=== PATIENT | male | born 1940 | race Caucasian/White ===

== ENCOUNTER → 2018-12-07 | Outpatient (CLI) | payer MEDICARE ==
[~2018-12-07] MED LIST: HOLD METFORMIN - RECEIVED CONTRAST 20 ML VIAL IV SCH; IOHEXOL 350 MG/ML 100 ML (OMNIPAQUE 350) VIAL IV ONE; NS 100 ML (IVPB) BAG IV ONE
--- NOTE | 2018-12-07 11:01 | Diagnostic Imaging Report ---
EXAM: CT NECK/CHEST W INDICATION: Tracheal stricture. COMPARISON: None. FINDINGS: Neck: No mass or fluid collection in the neck. No cervical lymphadenopathy. The thyroid and major salivary glands are unremarkable. The floor of the mouth, tongue base and epiglottis are negative. No prevertebral fluid. The pharyngeal and laryngeal soft tissues are symmetric bilaterally with no foci of suspicious enhancement. The cervical carotid and vertebral arteries are grossly patent on this nondedicated exam. No acute findings in the cervical spine. Moderate spondylotic changes. Chest: Diffuse fibrotic changes throughout the right lung including some honeycombing. Small right pleural effusion. There is also calcified pleural plaque along the medial right lower lobe. Mass-like consolidation about the hilum measuring 1.9 x 1.7 cm. There is also mass-like consolidation along the major fissure measuring 2.6 x 1.9 cm. The left lung is clear. Diffuse calcification of the mediastinal lymph nodes. Normal heart size. No pericardial effusion. Prominent-caliber left pulmonary arteries. The right pulmonary artery appears stenotic and is not opacified. Calcified granulomas in the liver and spleen. Nonspecific but simple-appearing cyst in the partially visualized kidneys. No acute osseous findings. IMPRESSION: 1. 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 2. There are diffuse fibrotic changes throughout the right lung with regions of mass-like consolidation which are indeterminate. Although these may be due to scarring, neoplastic process is not excluded. Recommend comparison with prior outside imaging to document stability. Alternatively, short-term followup imaging versus nuclear medicine FDG PET/CT is recommended. 3. No acute CT findings in the neck. 4. The trachea demonstrates no regions of focal stenosis. Dictated by: Dictated on workstation # [id number]
== END ==
LOC: RAD FS 09:03
PROVIDERS: ATTEND Family Medicine
DX: J84.10 Pulmonary fibrosis, unspecified (principal); I89.8 Other specified noninfective disorders of lymphatic vessels and lymph nodes; I28.8 Other diseases of pulmonary vessels; J39.8 Other specified diseases of upper respiratory tract
CPT/HCPCS: 70491; 71260

== ENCOUNTER 2019-02-24 18:27 | Emergency (ER) | payer MEDICARE ==
[~2019-02-24] VITALS: Ht 177.8 cm; Wt 88.5 kg
--- NOTE | 2019-02-24 18:55 | ED Chest Pain ---
General Stated Complaint: CHEST PAIN, SOB Source: patient Exam Limitations: no limitations History of Present Illness Date Seen by Provider: Feb 24, 2019 Time Seen by Provider: 18:40 Initial Comments The patient is a very pleasant 78-year-old male who presents for evaluation of substernal chest pain which began about an hour ago and lasted about 45 minutes. Upon arrival he states he is feeling much better and that the pain has essentially gone away. He says it was a sharp pain radiating from his chest to his jaw/neck. As he has had similar pains in the past which have been relieved by Tums and antacid medications. He denies diaphoresis, shortness of breath, palpitations, abdominal pain, nausea, or syncope. He reports some mild light headedness during the painful episode. He had a stress test a few years ago which was normal per the patient. He also reports that he had a recent pneumonia but believes that he is completely recovered from is no longer on antibiotics. He reports a history of COPD and states that he has chronic issues with his right lung which she states does not function very well. He is alert and oriented 4, calm, and appears to be in no distress. Timing/Duration: 1 hour Severity/Quality: moderate Location: substernal Radiation: jaw, shoulders Activities at Onset: none Prior CP/Workup: stress test ASA po ARTIST COLOR SEPARATION: No NTG SL ARTIST COLOR SEPARATION: No Associated Symptoms: dizziness (lightheadedness) Allergies and Home Medications Allergies Coded Allergies: adhesive tape (Verified Allergy, Unknown, rash, 02/24/19) Patient Home Medication List Home Medication List Reviewed: Yes Review of Systems Review of Systems Constitutional: no symptoms reported EENTM: No Symptoms Reported Respiratory: No Symptoms Reported Cardiovascular: Chest Pain Gastrointestinal: No Symptoms Reported Genitourinary: No Symptoms Reported Musculoskeletal: no symptoms reported Skin: no symptoms reported Psychiatric/Neurological: No Symptoms Reported Endocrine: No Symptoms Reported Hematologic/Lymphatic: No Symptoms Reported All Other Systems Reviewed Negative Unless Noted: Yes Past Afivvvx-Yraewu-Lruncl Hx Past Med/Social Hx: Reviewed Nursing Past Med/Soc Hx Patient Social History Recent Foreign Travel: No Contact w/Someone Who Travel: No Physical Exam Vital Signs Vital Signs - First Documented 02/24/19 18:33 Temp 99.9 Pulse 111 Resp 18 B/P (MAP) 137/71 (93) Pulse Ox 97 Capillary Refill : Height, Weight, BMI Height: '" Weight: lbs. oz. kg; BMI Method: General Appearance: No Apparent Distress, WD/WN HEENT: PERRL/EOMI, TMs Normal Neck: Full Range of Motion, Non Tender, Supple Respiratory: Chest Non Tender, Lungs Clear, Normal Breath Sounds, No Accessory Muscle Use, No Respiratory Distress Cardiovascular: No JVD, Normal Peripheral Pulses, Tachycardia, Other (1+ edema bilateral ankles) Gastrointestinal: No Pulsatile Mass, Non Tender, Soft Extremity: Normal Capillary Refill, Non Tender Neurologic/Psychiatric: Alert, Oriented x3, No Motor/Sensory Deficits, Normal Mood/Affect, global compensation analyst II-XII Norm as Tested Skin: Normal Color, Warm/Dry Focused Exam Lactate Level 02/24/19 18:50: Lactic Acid Level 1.34 Lactic Acid Level Laboratory Tests Test 02/24/19 18:50 Lactic Acid Level 1.34 MMOL/L (0.50-2.00) Progress/Results/Core Measures Results/Orders Lab Results Laboratory Tests Test 02/24/19 18:31 02/24/19 18:50 02/24/19 21:15 Range/Units Prothrombin Time 13.7 12.2-14.7 SEC INR Comment 1.0 0.8-1.4 Activated Partial Thromboplast Time 29 24-35 SEC White Blood Count 11.8 H 4.3-11.0 10^3/uL Red Blood Count 4.41 4.35-5.85 10^6/uL Hemoglobin 13.8 13.3-17.7 G/DL Hematocrit 43 40-54 % Mean Corpuscular Volume 97 80-99 FL Mean Corpuscular Hemoglobin 31 25-34 PG Mean Corpuscular Hemoglobin Concent 32 32-36 G/DL Red Cell Distribution Width 13.4 10.0-14.5 % Platelet Count 178 130-400 10^3/uL Mean Platelet Volume 10.3 7.4-10.4 FL Neutrophils (%) (Auto) 82 H 42-75 % Lymphocytes (%) (Auto) 6 L 12-44 % Monocytes (%) (Auto) 8 0-12 % Eosinophils (%) (Auto) 3 0-10 % Basophils (%) (Auto) 0 0-10 % Neutrophils # (Auto) 9.7 H 1.8-7.8 X 10^3 Lymphocytes # (Auto) 0.8 L 1.0-4.0 X 10^3 Monocytes # (Auto) 0.9 0.0-1.0 X 10^3 Eosinophils # (Auto) 0.4 H 0.0-0.3 10^3/uL Basophils # (Auto) 0.0 0.0-0.1 10^3/uL Neutrophils % (Manual) 78 % Lymphocytes % (Manual) 9 % Monocytes % (Manual) 4 % Eosinophils % (Manual) 6 % Basophils % (Manual) 1 % Band Neutrophils 2 % Sodium Level 141 135-145 MMOL/L Potassium Level 4.0 3.6-5.0 MMOL/L Chloride Level 101 98-107 MMOL/L Carbon Dioxide Level 29 21-32 MMOL/L Anion Gap 11 5-14 MMOL/L Blood Urea Nitrogen 23 H 7-18 MG/DL Creatinine 1.24 0.60-1.30 MG/DL Estimat Glomerular Filtration Rate 57 BUN/Creatinine Ratio 19 Glucose Level 137 H 70-105 MG/DL Lactic Acid Level 1.34 0.50-2.00 MMOL/L Calcium Level 9.1 8.5-10.1 MG/DL Corrected Calcium 9.2 8.5-10.1 MG/DL Magnesium Level 2.1 1.6-2.4 MG/DL Total Bilirubin 0.3 0.1-1.0 MG/DL Aspartate Amino Transf (AST/SGOT) 18 5-34 U/L Alanine Aminotransferase (ALT/SGPT) 23 0-55 U/L Alkaline Phosphatase 104 40-136 U/L Troponin I < 0.30 < 0.30 <0.30 NG/ML Pro-B-Type Natriuretic Peptide 28.7 <75.0 PG/ML Total Protein 7.0 6.4-8.2 GM/DL Albumin 3.9 3.2-4.5 GM/DL My Orders Orders - TUNDE HARRY DO Cbc With Automated Diff (02/24/19 18:31) Magnesium (02/24/19 18:31) Chest 1 View Ap/Pa Only (02/24/19 18:31) Ekg Tracing (02/24/19 18:31) Comprehensive Metabolic Panel (02/24/19 18:31) Protime With Inr (02/24/19 18:31) Partial Thromboplastin Time (02/24/19 18:31) O2 (02/24/19 18:31) Monitor-Rhythm Ecg Trace Only (02/24/19 18:31) Ed Iv/Invasive Line Start (02/24/19 18:31) Creatine Kinase Mb (02/24/19 18:31) Troponin I (02/24/19 18:31) Probnp Fs (02/24/19 18:31) Lactic Acid Analyzer (02/24/19 18:55) Blood Culture (02/24/19 18:55) Aspirin Chewable Tablet (Baby Aspirin Ch (02/24/19 19:00) Lidocaine 2% Viscous 15 Ml (Xylocaine Vi (02/24/19 19:00) Antacid Suspension (Mylanta Suspension (02/24/19 19:00) Manual Differential (02/24/19 18:50) Blood Culture (02/24/19 19:37) Troponin I (02/24/19 21:15) Medications Given in ED Current Medications Medications Dose Ordered Sig/Omid Route Start Time Stop Time Status Last Admin Dose Admin Al Hydrox/Mg Hydrox/Simethicone 30 ml ONCE ONCE PO 02/24/19 19:00 02/24/19 19:01 DC 02/24/19 19:48 30 ML Aspirin 324 mg ONCE ONCE PO 02/24/19 19:00 02/24/19 19:01 DC 02/24/19 19:48 324 MG Lidocaine HCl 15 ml ONCE ONCE PO 02/24/19 19:00 02/24/19 19:01 DC 02/24/19 19:48 15 ML Vital Signs/I&O 02/24/19 18:33 Temp 99.9 Pulse 111 Resp 18 B/P (MAP) 137/71 (93) Pulse Ox 97 Progress Progress Note : Progress Note @2155 - Patient and dictated on lab and imaging results. CXR is unremarkable other than showing chronic lung findings. The patient is completely pain-free and states that he would like to go home at this time. He believes that the GI cocktail helped his symptoms significantly. Advised the patient to follow up with his PCP in the next 1-2 days and to return to the emergency Department immediately for new or worsening symptoms. He expresses verbal understanding and agreement with the plan. EKG : Comment @1833 - Sinus tachycardia, rate of 110, normal axis, no acute ischemic findings noted, no STEMI, reviewed and interpreted by myself Departure Impression Primary Impression: Chest pain Additional Impression: GERD (gastroesophageal reflux disease) Disposition: HOME, SELF-CARE Condition: Stable Departure-Patient Inst. Decision time for Depature: 22:01 Referrals: AVA HODGES MD (PCP/Family) Primary Care Physician Patient Instructions: Acid Reflux (Gastroesophageal Reflux Disease), Adult (DC), Chest Pain (DC) Add. Discharge Instructions: As discussed follow-up with your doctor in the next 1-2 days. Return to the ER immediately for new or worsening symptoms. Take the prescribed medication as directed. Scripts Pantoprazole Sodium (Protonix) 40 Mg Chito.dr 40 MG PO DAILY for 20 Days, #20 TAB Prov: TUNDE HARRY DO 02/24/19 TUNDE HARRY DO Feb 24, 2019 18:55
--- NOTE | 2019-02-24 19:11 | Diagnostic Imaging Report ---
INDICATION: Chest pain, shortness of breath. COMPARISON: No priors. FINDINGS: The heart is enlarged. There are interstitial densities in the right lung with some volume loss. This may be chronic; however, I have no prior chest radiographs for comparison. When it is correlated with a CT of 12/07/2018, it showed no obvious change. Calcified mediastinal and hilar granulomatous residua chronic. No pleural fluid. IMPRESSION: Chronic volume loss and interstitial changes in the right lung with chronic calcified thoracic lymph nodes. No acute finding or apparent change when correlated with previous CT. Dictated by: Dictated on workstation # [id number]
[2019-02-24 19:15] LABS: BASOPHILS % (AUTO) 0 % (0-10); EOSINOPHILS # (AUTO) 0.4 10^3/uL (0.0-0.3); EOSINOPHILS % (AUTO) 3 % (0-10); HEMATOCRIT 43 % (40-54); HEMOGLOBIN 13.8 G/DL (13.3-17.7); LYMPHOCYTES # (AUTO) 0.8 X 10^3 (1.0-4.0); LYMPHOCYTES % (AUTO) 6 % (12-44); MEAN CORPUSCULAR HEMOGLOBIN 31 PG (25-34); MEAN CORPUSCULAR HGB CONC 32 G/DL (32-36); MEAN CORPUSCULAR VOLUME 97 FL (80-99); MEAN PLATELET VOLUME 10.3 FL (7.4-10.4); MONOCYTES # (AUTO) 0.9 X 10^3 (0.0-1.0); MONOCYTES % (AUTO) 8 % (0-12); NEUTROPHILS # (AUTO) 9.7 X 10^3 (1.8-7.8); NEUTROPHILS % (AUTO) 82 % (42-75); PLATELET COUNT 178 10^3/uL (130-400); RED CELL DISTRIBUTION WIDTH 13.4 % (10.0-14.5); WHITE BLOOD COUNT 11.8 10^3/uL (4.3-11.0)
[2019-02-24 19:30] LABS: CALCIUM 9.1 MG/DL (8.5-10.1); CREATININE SERUM 1.24 MG/DL (0.60-1.30)
[2019-02-24 19:31] LABS: BILIRUBIN,TOTAL 0.3 MG/DL (0.1-1.0)
[2019-02-24 19:32] LABS: ALBUMIN 3.9 GM/DL (3.2-4.5)
[2019-02-24 19:35] LABS: PROTHROMBIN TIME PATIENT 13.7 SEC (12.2-14.7)
[2019-02-24] MEDS: ANTACID SUSP 30 ML UDC (MYLANTA) PO ONE (19:48)
[2019-02-24] MEDS: ASPIRIN 81 MG CHEW (CHILDREN'S ASA) PO ONE (19:48)
[2019-02-24] MEDS: LIDOCAINE 2% VISCOUS 15 ML UDC PO ONE (19:48)
[2019-02-24 19:56] LABS: MAGNESIUM 2.1 MG/DL (1.6-2.4)
[2019-02-24 20:00] LABS: BAND NEUTROPHILS 2 %; BASOPHILS % (MANUAL) 1 %; EOSINOPHILS % (MANUAL) 6 %; LYMPHOCYTES % (MANUAL) 9 %; MONOCYTES % (MANUAL) 4 %; NEUTROPHILS % (MANUAL) 78 %
[2019-02-24] MEDS ORDERED: PANT40SU PO (22:03)
[2019-02-24 22:32] VITALS: BP 121/76
[2019-02-25 09:32] LABS: CREATINE KINASE MB 5.9 NG/ML (<6.6)
== END 2019-02-24 22:31 | disposition home or self-care (01) ==
LOC: EDUNIT# 18:27 → ER FS 18:28
DX: R07.9 Chest pain, unspecified (principal); K21.9 Gastro-esophageal reflux disease without esophagitis; J44.9 Chronic obstructive pulmonary disease, unspecified; Z88.8 Allergy status to other drugs, medicaments and biological substances
CPT/HCPCS: 36415; 71045; 80053; 82553; 83605; 83735; 83880; 84484; 85007; 85027; 85610; 85730; 87040; 93005; 93041

== ENCOUNTER 2021-09-13 12:09 | Emergency (ER) | payer MEDICARE, OTHER ==
[~2021-09-13] VITALS: Ht 175.2 cm; Wt 80.9 kg
[~2021-09-13 12:09] MED LIST changes: -HOLD METFORMIN - RECEIVED CONTRAST 20 ML VIAL IV SCH; -IOHEXOL 350 MG/ML 100 ML (OMNIPAQUE 350) VIAL IV ONE; -NS 100 ML (IVPB) BAG IV ONE; +PANT40SU PO
[2021-09-13] MEDS ORDERED: KETOROLAC 30 MG/ML VIAL IM ONE (12:30)
--- NOTE | 2021-09-13 12:41 | ED Upper Extremity ---
General Chief Complaint: Upper Extremity Stated Complaint: LT SHOULDER INJ Nursing Triage Note: Patient presents to the ED with c/o left shoulder pain and impaired range of motion. States he was changing a saw blade and applying pressure when the tool slipped causing his left arm go back forcefully and he felt a pop. Since then reports severe pain in left shoulder with movement of left arm. Source: patient History of Present Illness Date Seen by Provider: Sep 13, 2021 Time Seen by Provider: 12:00 Initial Comments Patient is on 81-year-old right-handed male presents with left upper thoracic trapezius muscle pain. Patient was wrenching in his shop when he felt a sudden sharp pain and popping sensation over upper left posterior shoulder. Pain is continuous, rated moderate to severe and worse with palpation and active shoulder rotation. He has tenderness to palpation over his trapezius. The pain does radiate into his shoulder but he does not have pain on passive range of motion shoulder or tenderness in his shoulder joint. There is no midline pain or tenderness. No loss of sensation or motor function. Injury occurred just prior to ED arrival. No medications or therapies given prior to ED arrival Onset: just prior to arrival Severity: severe Pain/Injury Location: left shoulder Method of Injury: other Modifying Factors: Improves With Immobilization, Improves With Movement, Improves With Other Allergies and Home Medications Allergies Coded Allergies: adhesive tape (Verified Allergy, Unknown, rash, 02/24/19) Patient Home Medication List Home Medication List Reviewed: Yes Pantoprazole Sodium (Protonix) 40 Mg , 40 MG PO DAILY Prescribed by: TUNDE HARRY on 02/24/19 5437 Review of Systems Constitutional: see HPI EENTM: see HPI Respiratory: see HPI Cardiovascular: see HPI Gastrointestinal: see HPI Genitourinary: see HPI Musculoskeletal: see HPI Past Pnlfkfx-Ahfsze-Iuwxwd Hx Patient Social History Tobacco Use?: No Use of E-Cig and/or Vaping dev: No Substance use?: No Alcohol Use?: No Pt feels they are or have been: No Immunizations Up To Date Influenza Vaccine Up-to-Date: Yes; Up-to-Date First/Initial COVID19 Vaccinat: Yes Second COVID19 Vaccination Abiodun: yes 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 Surgeries: Yes Appendectomy Respiratory: Yes (lung is scarred; "one lung is big and pushing on heart" ) Pneumonia Cardiac: No Neurological: No Genitourinary: No Gastrointestinal: No Musculoskeletal: No Endocrine: No HEENT: No Cancer: No Psychosocial: No Integumentary: No Physical Exam Vital Signs Vital Signs - First Documented 09/13/21 12:18 Temp 36.2 Pulse 101 Resp 18 B/P (MAP) 152/78 (102) Pulse Ox 100 O2 Delivery Room Air Capillary Refill : Less Than 3 Seconds Height, Weight, BMI Height: 5'10.00" Weight: 195lbs. oz. 88.832896ny; 26.00 BMI Method:Stated General Appearance: moderate distress Neck: non-tender, full range of motion, supple Back: muscle spasm (Left trapezius muscle pain/tenderness reproducing patient's complaint.) Shoulder: normal inspection, non-tender, no evidence of injury, normal ROM Progress/Results/Core Measures Results/Orders My Orders Orders - LAILA GODFREY DO Ketorolac Injection (Toradol Injection) (09/13/21 12:30) Ice: Apply To Affected Area (09/13/21 12:29) Vital Signs/I&O 09/13/21 12:18 Temp 36.2 Pulse 101 Resp 18 B/P (MAP) 152/78 (102) Pulse Ox 100 O2 Delivery Room Air Blood Pressure Mean: 102 Departure Communication (Admissions) Reproducible shoulder sprain. NSAIDs, ice provided. Recommendations are supportive care watchful waiting and PCP follow-up. Impression Primary Impression: Shoulder pain, left Disposition: 01 HOME, SELF-CARE Condition: Stable Departure-Patient Inst. Decision time for Depature: 12:40 Referrals: AVA HODGES MD (PCP) Primary Care Physician Patient Instructions: Shoulder Pain ED Add. Discharge Instructions: Your evaluated in the emergency department for left shoulder back pain. Your symptoms are consistent with trapezius muscle sprain. Please take 2 Aleve twice daily, apply ice to the affected area for 20 to 30 minutes every 2-3 hours for the first 2 days. Afterwards you may use moist heat for additional relief. Take Flexeril as directed. Limit left arm use and follow-up with your PCP in 1 week for reevaluation. Return to the ED if new or worsening symptoms. All discharge instructions reviewed with patient and/or family. Voiced understanding. Scripts Cyclobenzaprine HCl (Cyclobenzaprine HCl) 10 Mg Tablet 10 MG PO TID, #30 TAB Prov: LAILA GODFREY DO 09/13/21 LAILA GODFREY DO Sep 13, 2021 12:41
[2021-09-13] MEDS ORDERED: CYCL10TA25 PO (12:42)
[2021-09-13 12:53] VITALS: BP 152/78
== END 2021-09-13 12:54 | disposition home or self-care (01) ==
LOC: EDUNIT# 12:09 → ER FS 12:10
DX: S43.402A Unspecified sprain of left shoulder joint, initial encounter (principal); X50.1XXA Overexertion from prolonged static or awkward postures, initial encounter; Y92.59 Other trade areas as the place of occurrence of the external cause; Y92.513 Shop (commercial) as the place of occurrence of the external cause
CPT/HCPCS: 99284; A4565

== ENCOUNTER 2022-07-30 12:02 | Emergency (ER) | payer MEDICARE, OTHER ==
[~2022-07-30] VITALS: Ht 175 cm; Wt 82.0 kg
[~2022-07-30 12:02] MED LIST changes: +CYCL10TA25 PO
[2022-07-30 12:14] LABS: BASOPHILS # (AUTO) 0.1 10^3/uL (0.0-0.1); BASOPHILS % (AUTO) 1 % (0-10); EOSINOPHILS # (AUTO) 0.2 10^3/uL (0.0-0.3); EOSINOPHILS % (AUTO) 2 % (0-10); HEMATOCRIT 43 % (40-54); HEMOGLOBIN 14.4 g/dL (13.3-17.7); LYMPHOCYTES # (AUTO) 0.8 10^3/uL (1.0-4.0); LYMPHOCYTES % (AUTO) 8 % (12-44); MEAN CORPUSCULAR HEMOGLOBIN 32 pg (25-34); MEAN CORPUSCULAR HGB CONC 33 g/dL (32-36); MEAN CORPUSCULAR VOLUME 96 fL (80-99); MEAN PLATELET VOLUME 9.9 fL (9.0-12.2); MONOCYTES # (AUTO) 0.9 10^3/uL (0.0-1.0); MONOCYTES % (AUTO) 9 % (0-12); NEUTROPHILS # (AUTO) 7.9 10^3/uL (1.8-7.8); NEUTROPHILS % (AUTO) 80 % (42-75); PLATELET COUNT 198 10^3/uL (130-400); WHITE BLOOD COUNT 9.8 10^3/uL (4.3-11.0)
[2022-07-30] MEDS ORDERED: ASPIRIN 81 MG CHEW (CHILDREN'S ASA) PO ONE (12:15)
[2022-07-30] MEDS ORDERED: methylPREDNISolone 125 MG (Solu-MEDROL) VIAL IVP STA (12:28)
--- NOTE | 2022-07-30 12:28 | ED Chest Pain ---
General Chief Complaint: Chest Pain Stated Complaint: CHEST PAIN Source: patient History of Present Illness Date Seen by Provider: Jul 30, 2022 Time Seen by Provider: 12:09 Initial Comments 82-year-old male presenting with concerns for numbness and aching and has left arm that has been present since he woke up around 7 AM. He initially was thinking that he had slept on the arm wrong to cause him to have the aching in tingling sensation. However since it was persisting and not improving he decided to come to the emergency department to be evaluated. He has no known history of cardiac disease. He states that he had thought he was having a heart attack a few years ago and got transferred to [place] where they evaluated him and advised him that was a medication he was taking that caused his symptoms and not a actual heart attack. He denies any new medications currently. He has recently had an ear infection and took steroids as well as antibiotics to help treat that. He still has some fluid in his ears with difficulty hearing but states that it is improving. He denies having numbness and tingling in his arm like this previously. He denies any fall or injury. He had tried some tylenol at home for the arm sensation but it was not changing after he took the medicine. He denies shortness of breath, nausea, vomiting, abdominal pain, neck pain, headache, fever, chills. Timing/Duration: 4-6 hours, constant Severity/Quality: moderate, aching (With numbness and tingling from his left shoulder down to his fingers) Radiation: arms (From left shoulder down to his left fingers) Activities at Onset: sleep (Present when he woke up around 7 AM) Prior CP/Workup: non-cardiac ASA po MUSIC CATALOGUER: No NTG SL MUSIC CATALOGUER: No Associated Symptoms: No abdominal pain, No back pain, No diaphoresis, No dizziness, No edema, No fatigue, No fever/chills, No headache, No heartburn, No nausea/vomiting, No rash, No shortness of breath, No swelling/lump in chest, No syncope, No weakness Allergies and Home Medications Allergies Coded Allergies: adhesive tape (Verified Allergy, Unknown, rash, 02/24/19) Patient Home Medication List Home Medication List Reviewed: Yes Cyclobenzaprine HCl (Cyclobenzaprine HCl) 10 Mg Tablet, 10 MG PO TID Prescribed by: LAILA GODFREY on 09/13/21 1242 Pantoprazole Sodium (Protonix) 40 Mg Granpkt.dr 40 MG PO DAILY Prescribed by: TUNDE HARRY on 02/24/19 3768 Review of Systems Review of Systems Constitutional: No chills, No dizziness, No fever EENTM: See HPI Respiratory: No Symptoms Reported Cardiovascular: Denies Chest Pain Gastrointestinal: No Symptoms Reported Genitourinary: No Symptoms Reported Musculoskeletal: see HPI Skin: No rash Psychiatric/Neurological: See HPI Hematologic/Lymphatic: Denies Blood Clots Past Shcrbtn-Nuojgo-Bcqxox Hx Patient Social History Tobacco Use?: No Use of E-Cig and/or Vaping dev: No Substance use?: No Alcohol Use?: No Immunizations Up To Date First/Initial COVID19 Vaccinat: Yes Second COVID19 Vaccination Abiodun: yes Seasonal Allergies Seasonal Allergies: No Past Medical History Surgery/Hospitalization HX: High cholesterol; hypothyroidism; BPH; Depression; Kidney stones; Appendectomy. Surgeries: Yes Appendectomy Respiratory: Yes (lung is scarred; "one lung is big and pushing on heart" ) Pneumonia Cardiac: No Neurological: No Genitourinary: No Gastrointestinal: No Musculoskeletal: No Endocrine: No HEENT: No Cancer: No Psychosocial: No Integumentary: No Physical Exam Vital Signs Vital Signs - First Documented 07/30/22 12:05 Temp 36.6 Pulse 101 Resp 16 B/P (MAP) 153/82 (105) Pulse Ox 98 O2 Delivery Room Air Capillary Refill : Height, Weight, BMI Height: 5'10.00" Weight: 195lbs. oz. 88.235488rz; 26.00 BMI Method:Stated General Appearance: No Apparent Distress, WD/WN HEENT: PERRL/EOMI, Pharynx Normal Neck: Full Range of Motion, Normal Inspection, Non Tender, Supple Respiratory: Chest Non Tender, Lungs Clear, No Accessory Muscle Use, No Respiratory Distress, Decreased Breath Sounds Cardiovascular: Regular Rate, Rhythm, Normal Peripheral Pulses Gastrointestinal: Normal Bowel Sounds, No Pulsatile Mass, Non Tender, Soft Rectal: Deferred Extremity: Normal Capillary Refill, Normal Inspection, Normal Range of Motion, No Calf Tenderness, No Pedal Edema Neurologic/Psychiatric: Alert, Oriented x3, No Motor/Sensory Deficits (Reports tingling and aching sensation in his left arm from his shoulder down to his fingers), stem teacher II-XII Norm as Tested Skin: Normal Color, Warm/Dry Progress/Results/Core Measures Results/Orders Lab Results Laboratory Tests Test 07/30/22 12:05 Range/Units White Blood Count 9.8 4.3-11.0 10^3/uL Red Blood Count 4.51 4.30-5.52 10^6/uL Hemoglobin 14.4 13.3-17.7 g/dL Hematocrit 43 40-54 % Mean Corpuscular Volume 96 80-99 fL Mean Corpuscular Hemoglobin 32 25-34 pg Mean Corpuscular Hemoglobin Concent 33 32-36 g/dL Red Cell Distribution Width 13.1 10.0-14.5 % Platelet Count 198 130-400 10^3/uL Mean Platelet Volume 9.9 9.0-12.2 fL Immature Granulocyte % (Auto) 1 % Neutrophils (%) (Auto) 80 H 42-75 % Lymphocytes (%) (Auto) 8 L 12-44 % Monocytes (%) (Auto) 9 0-12 % Eosinophils (%) (Auto) 2 0-10 % Basophils (%) (Auto) 1 0-10 % Neutrophils # (Auto) 7.9 H 1.8-7.8 10^3/uL Lymphocytes # (Auto) 0.8 L 1.0-4.0 10^3/uL Monocytes # (Auto) 0.9 0.0-1.0 10^3/uL Eosinophils # (Auto) 0.2 0.0-0.3 10^3/uL Basophils # (Auto) 0.1 0.0-0.1 10^3/uL Immature Granulocyte # (Auto) 0.1 0.0-0.1 10^3/uL Neutrophils % (Manual) 73 % Lymphocytes % (Manual) 8 % Monocytes % (Manual) 10 % Eosinophils % (Manual) 3 % Basophils % (Manual) 1 % Metamyelocytes % 1 % Myelocytes % 1 % Band Neutrophils 3 % Platelet Estimate NORMAL Blood Morphology Comment NORMAL Prothrombin Time 13.5 12.2-14.7 SEC INR Comment 1.0 0.8-1.4 Activated Partial Thromboplast Time 42 H 24-35 SEC Sodium Level 139 135-145 MMOL/L Potassium Level 4.6 3.6-5.0 MMOL/L Chloride Level 100 98-107 MMOL/L Carbon Dioxide Level 29 21-32 MMOL/L Anion Gap 10 5-14 MMOL/L Blood Urea Nitrogen 21 H 7-18 MG/DL Creatinine 1.35 H 0.60-1.30 MG/DL Estimat Glomerular Filtration Rate 53 BUN/Creatinine Ratio 16 Glucose Level 97 70-105 MG/DL Calcium Level 9.5 8.5-10.1 MG/DL Corrected Calcium 9.3 8.5-10.1 MG/DL Magnesium Level 2.4 1.6-2.4 MG/DL Total Bilirubin 0.4 0.1-1.0 MG/DL Aspartate Amino Transf (AST/SGOT) 19 5-34 U/L Alanine Aminotransferase (ALT/SGPT) 17 0-55 U/L Alkaline Phosphatase 165 H 40-136 U/L Troponin I < 0.30 <0.30 NG/ML Pro-B-Type Natriuretic Peptide 72.0 <450.0 PG/ML Total Protein 8.0 6.4-8.2 GM/DL Albumin 4.2 3.2-4.5 GM/DL Lipase 11 8-78 U/L My Orders Orders - BRITT BASS MD Cbc With Automated Diff (07/30/22 12:04) Magnesium (07/30/22 12:04) Ekg Tracing (07/30/22 12:04) Comprehensive Metabolic Panel (07/30/22 12:04) Protime With Inr (07/30/22 12:04) Partial Thromboplastin Time (07/30/22 12:04) O2 (07/30/22 12:04) Monitor-Rhythm Ecg Trace Only (07/30/22 12:04) Aspirin Chewable Tablet (Baby Aspirin Ch (07/30/22 12:15) Ed Iv/Invasive Line Start (07/30/22 12:04) Lipase (07/30/22 12:04) Troponin I Fs (07/30/22 12:04) Probnp Fs (07/30/22 12:04) Chest 1 View Ap/Pa Only (07/30/22 12:28) Methylprednisolone Sod Succ (Solu-Medrol (07/30/22 12:28) Manual Differential (07/30/22 12:05) Dexamethasone Injection (Decadron Inje (07/30/22 14:28) Medications Given in ED Current Medications Medications Dose Ordered Sig/Omid Route Start Time Stop Time Status Last Admin Dose Admin Aspirin 324 mg ONCE ONCE PO 07/30/22 12:15 07/30/22 12:16 DC 07/30/22 12:34 324 MG Vital Signs/I&O 07/30/22 07/30/22 12:05 14:02 Temp 36.6 36.6 Pulse 101 100 Resp 16 16 B/P (MAP) 153/82 (105) 151/77 Pulse Ox 98 98 O2 Delivery Room Air Room Air Progress Progress Note #1: Progress Note Potential diagnosis of myocardial infarction, acute coronary syndrome, unstable angina, congestive heart failure, peripheral neuropathy, cervical radiculopathy. Obtain IV access and ordered cardiac telemetry monitoring as well as an electrocardiogram. On my initial interpretation of his cardiac telemetry monitoring it shows a sinus rhythm with a heart rate of 96. Ordered labs to include complete blood count, comprehensive metabolic profile, cardiac enzymes with troponin and proBNP, coagulation factors. Order chest x-ray in addition to the electrocardiogram to evaluate the structure of his lungs and heart. He reports a history of having only 1 lung that functions and having effusion on the other side. He states this is a chronic issue and they could never give him an answer as to what caused it. He does use albuterol treatments 3-4 times a day which helps to clear mucus and prevent him from getting pneumonia with the pleural effusion and decreased lung movement. Order aspirin 324 mg to chew and swallow. This is in case he is having any acute coronary syndrome to explain his symptoms he would at least have aspirin on board to help prevent further platelet clotting or obstruction of coronary arteries. Progress Note #2: Progress Note I personally interpreted and reviewed his electrocardiogram which shows a sinus rhythm with a heart rate of [address] elevation. He had a 1 view chest x-ray which I personally interpreted and reviewed as Raised hemidiaphragm on right side with scarring vs atelectasis in right lung. No pleural effusion appreciated. Blood count shows his WBC is not elevated to indicate acute infection and he is not anemic with Hgb of 14.4. Comprehensive metabolic panel shows normal electrolytes and slight decrease in his renal function as he had a creatinine go from 1.24 in 2019 up to 1.35 today. He had a negative troponin of less than 0.3 to help rule out acute myocardial infarction since his symptoms of been present for over 5 hours by the time he arrived to the emergency department. I discussed with the patient that his electrocardiogram, chest x-ray, blood count, electrolytes, cardiac enzymes were all negative for acute myocardial infarction or acute arrhythmia. Patient stated he still had the aching and tingling in his left arm and I discussed obtaining a CT scan of his cervical spine to look for radiculopathy and compression of nerve roots or severe arthritic changes. Also advised him I could do an IV steroid to try and help with his symptoms in case this was a pinched nerve for irritated nerve. Patient declined to the CT scan but was willing to take a steroid dose. He stated he wa s on steroids within the last 2 weeks for his ear infection. Counseled that he should still follow-up with primary clinic for continued evaluation and concerns. However he is not showing any signs of testing that would indicate he required emergent transfer to hospital for admission. Encouraged to return or be seen again if having worsening symptoms.Ordered Dexamethasone 10 mg IV x 1 for his symptoms and discharge with return precautions. I did review the radiologist report on his 1 view chest x-ray. They had felt that he had increased fibrosis from 2019 with possible infiltrate on the right lung. With patient not having elevated white blood cell count or hypoxia will consider this more worsening of fibrosis in his lung. Initial ECG Impression Date: Jul 30, 2022 Initial ECG Impression Time: 12:14 Initial ECG Rate: 100 Initial ECG Rhythm: Normal Sinus Initial ECG Comparisson: Unchanged (02/24/2019) Comment Based on my personal interpretation and review his electrocardiogram shows sinus rhythm with a heart rate of 100 bpm. He has LA interval 168 ms. He has no acute ST elevation. His QT interval was 336 ms with a QTc interval 393 ms. Overall appears similar to tracing from February 24, 2019. Diagnostic Imaging Diagonstic Imaging: Xray Plain Films/CT/US/NM/MRI: chest Comments [facility] [place], [place] NAME: [facility] REC#: [id number] PT STATUS: DEP ER : 1940 PHYSICIAN: BRITT BASS MD ADMIT DATE: 07/30/22/ER FS Signed Date of Exam:07/30/22 CHEST 1 VIEW AP/PA ONLY HISTORY: Chest pain COMPARISON: 02/24/2019 TECHNIQUE: Frontal view of the chest. FINDINGS: Left lung volume is large and there is significant elevation of the right hemidiaphragm. There are heterogeneous opacities throughout the right lung which appear to be chronic but are increased since 2019. There are increased linear opacities in the left lung. There is no left pleural effusion or pneumothorax. The cardiac silhouette is stable in size and mildly shifted to the right, likely from fibrosis. IMPRESSION: 1. Chronic heterogeneous opacities in the right lung, likely from fibrosis appear mildly increased since 2019. This may be due to progression of disease versus superimposed infiltrate. 2. Mildly increased interstitial opacities in the left lung, may be due to mild edema. Dictated by: Dictated on workstation # [id number] Dict: 07/30/22 1252 Trans: 07/30/22 1715 CV [id number] Interpreted by: RICK ZAMUDIO MD Electronically signed by: RICK ZAMUDIO MD 07/30/22 4520 Reviewed: Reviewed by Me (1400 I personally reviewed the Radiologist report on his 1 view Chest xray. [place] to be showing increased fibrosis from 2019 vs infiltrate.) Departure Impression Primary Impression: Paresthesia of left upper extremity Disposition: HOME, SELF-CARE Condition: Stable Departure-Patient Inst. Decision time for Depature: 14:29 Referrals: AVA HODGES MD (PCP/Family) Primary Care Physician Patient Instructions: Paresthesia (DC) Add. Discharge Instructions: Your heart tests were negative today for a heart attack or acute heart damage. This could be a pinched or irritated nerve causing the aching and tingling in your left arm. All discharge instructions reviewed with patient and/or family. Voiced understanding. BRITT BASS MD Jul 30, 2022 12:27
[2022-07-30 12:30] LABS: PROTHROMBIN TIME PATIENT 13.5 SEC (12.2-14.7)
[2022-07-30 12:34] LABS: POTASSIUM 4.6 MMOL/L (3.6-5.0)
[2022-07-30 12:35] LABS: ALBUMIN 4.2 GM/DL (3.2-4.5); BILIRUBIN,TOTAL 0.4 MG/DL (0.1-1.0); CALCIUM 9.5 MG/DL (8.5-10.1); CREATININE SERUM 1.35 MG/DL (0.60-1.30); MAGNESIUM 2.4 MG/DL (1.6-2.4)
[2022-07-30 12:42] LABS: BAND NEUTROPHILS 3 %; BASOPHILS % (MANUAL) 1 %; EOSINOPHILS % (MANUAL) 3 %; LYMPHOCYTES % (MANUAL) 8 %; METAMYELOCYTES % 1 %; MONOCYTES % (MANUAL) 10 %; MYELOCYTES % 1 %; NEUTROPHILS % (MANUAL) 73 %; PLATELET ESTIMATE NORMAL; RBC MORPH NORMAL
--- NOTE | 2022-07-30 12:55 | Diagnostic Imaging Report ---
HISTORY: Chest pain COMPARISON: 02/24/2019 TECHNIQUE: Frontal view of the chest. FINDINGS: Left lung volume is large and there is significant elevation of the right hemidiaphragm. There are heterogeneous opacities throughout the right lung which appear to be chronic but are increased since 2019. There are increased linear opacities in the left lung. There is no left pleural effusion or pneumothorax. The cardiac silhouette is stable in size and mildly shifted to the right, likely from fibrosis. IMPRESSION: 1. Chronic heterogeneous opacities in the right lung, likely from fibrosis appear mildly increased since 2019. This may be due to progression of disease versus superimposed infiltrate. 2. Mildly increased interstitial opacities in the left lung, may be due to mild edema. Dictated by: Dictated on workstation # [id number]
[2022-07-30 14:02] VITALS: BP 151/77
== END 2022-07-30 14:35 | disposition home or self-care (01) ==
LOC: EDUNIT# 12:02 → ER FS 12:03
DX: R20.2 Paresthesia of skin (principal)
CPT/HCPCS: 36415; 71045; 80053; 83690; 83735; 83880; 84484; 85007; 85027; 85610; 85730; 93005; 93041

== ENCOUNTER 2023-05-14 05:58 | Emergency (ER) | payer MEDICARE, OTHER ==
[~2023-05-14] VITALS: Ht 175.2 cm; Wt 84.0 kg
[2023-05-14] MEDS ORDERED: ONDANSETRON INJECTION 4 MG/2 ML (SDV) IVP STA (06:17)
[2023-05-14] MEDS ORDERED: NS (IVPB) 250 ML 250 ML IV STA (06:17)
[2023-05-14 06:25] LABS: BASOPHILS % (AUTO) 1 % (0-10); EOSINOPHILS # (AUTO) 0.3 10^3/uL (0.0-0.3); EOSINOPHILS % (AUTO) 5 % (0-10); HEMATOCRIT 38 % (40-54); HEMOGLOBIN 12.8 g/dL (13.3-17.7); LYMPHOCYTES # (AUTO) 0.8 10^3/uL (1.0-4.0); LYMPHOCYTES % (AUTO) 12 % (12-44); MEAN CORPUSCULAR HEMOGLOBIN 35 pg (25-34); MEAN CORPUSCULAR HGB CONC 34 g/dL (32-36); MEAN CORPUSCULAR VOLUME 105 fL (80-99); MEAN PLATELET VOLUME 9.5 fL (9.0-12.2); MONOCYTES # (AUTO) 0.4 10^3/uL (0.0-1.0); MONOCYTES % (AUTO) 7 % (0-12); NEUTROPHILS % (AUTO) 75 % (42-75); PLATELET COUNT 183 10^3/uL (130-400); WHITE BLOOD COUNT 6.6 10^3/uL (4.3-11.0)
--- NOTE | 2023-05-14 06:26 | ED Fall/Injury ---
General Chief Complaint: Laceration Stated Complaint: FALL| Source: patient (BRITT BASS MD) History of Present Illness Date Seen by Provider: May 14, 2023 Time Seen by Provider: 06:01 Initial Comments 82-year-old male presenting by private vehicle from home after he had fallen trying to get up out of bed to use the restroom. He states this happened to him on Thursday morning as well however he was able to lay back down in the dizziness that started when he tried to get up went away. He was fine throughout the rest of the day. Today he was not able to lay back down before the dizziness made him fall and he hit his head on the floor. He thinks he got knocked out for second. He now has some nausea and complaints of dizziness that comes and goes. He has not had any actual vomiting. He denies any numbness or weakness in his arms or legs. He has no change in his vision. He also has some pain to his left shoulder, scalp, head, cervical spine. He does have a history of hypothyroid, depression, high cholesterol, COPD, fluid retention. He believes his last tetanus booster was within the last 5 years. Location Injury Occurred: home Occurred: just prior to arrival Severity: moderate Injuries/Pain Location: head, neck, upper extremity (Left shoulder) Context: fainted (Got dizzy and fell and tried to get up out of bed to urinate) Loss of Consciousness: brief (seconds) Modifying Factors: Worse With Movement Associated Symptoms (Fall): No Abdominal Pain, No Chest Pain, No Confusion; Dizziness, Headache, Lightheadedness; No Muscle Spasms; Nausea/Vomiting, Neck Pain; No Ringing in Ears, No Seizures, No Shortness of Air, No Slurred Speech; Trouble Walking; No Vision Changes (BRITT BASS MD) Initial Comments Agree with H&P (VIJAYA JACK MD) Allergies and Home Medications Allergies Coded Allergies: adhesive tape (Verified Allergy, Unknown, rash, 02/24/19) Patient Home Medication List Home Medication List Reviewed: Yes (BRITT BASS MD) Cyclobenzaprine HCl (Cyclobenzaprine HCl) 10 Mg Tablet, 10 MG PO TID Prescribed by: LAILA GODFREY on 09/13/21 1242 Pantoprazole Sodium (Protonix) 40 Mg , 40 MG PO DAILY Prescribed by: TUNDE HARRY on 02/24/19 Review of Systems Review of Systems Constitutional: No chills, No diaphoresis; dizziness; No fever Eyes: Denies Blurred Vision, Denies Photophobia, Denies Tunnel Vision, Denies Vision Changes Ears, Nose, Mouth, Throat: denies ear pain, denies ear discharge, denies nose pain, denies nose discharge, denies epistaxis Respiratory: No cough, No hemoptysis Cardiovascular: No chest pain Gastrointestinal: No abdominal pain; nausea; No vomiting Genitourinary: No dysuria Musculoskeletal: see HPI Skin: see HPI (scalp laceration) Psychiatric/Neurological: Headache; Denies Numbness, Denies Paresthesia (BRITT BASS MD) Past Borxypy-Odecxh-Ovnhox Hx Patient Social History Tobacco Use?: No Use of E-Cig and/or Vaping dev: No Substance use?: No Alcohol Use?: No Pt feels they are or have been: No (BRITT BASS MD) Immunizations Up To Date Influenza Vaccine Up-to-Date: No; Not Current First/Initial COVID19 Vaccinat: Yes Second COVID19 Vaccination Abiodun: yes Third COVID19 Vaccination Date: Yes (BRITT BASS MD) Seasonal Allergies Seasonal Allergies: No (BRITT BASS MD) Past Medical History Surgery/Hospitalization HX: High cholesterol; hypothyroidism; BPH; Depression; Kidney stones; Appendectomy. Surgeries: Yes Appendectomy Respiratory: Yes (lung is scarred; "one lung is big and pushing on heart" ) Pneumonia Cardiac: No Neurological: No Genitourinary: No Gastrointestinal: No Musculoskeletal: No Endocrine: No HEENT: No Cancer: No Psychosocial: No Integumentary: No (BRITT BASS MD) Physical Exam Vital Signs Vital Signs - First Documented 05/14/23 06:00 Temp 36.6 Pulse 93 Resp 18 B/P (MAP) 140/72 (94) Pulse Ox 98 O2 Delivery Room Air (VIJAYA JACK MD) Vital Signs Capillary Refill : (BRITT BASS MD) Height, Weight, BMI Height: 5'10.00" Weight: 195lbs. oz. 88.755747lw; 26.00 BMI Method:Stated General Appearance: WD/WN, no apparent distress HEENT: PERRL/EOMI, TMs normal, pharynx normal; No photophobia; other (Negative palomo sign, negative raccoon sign, no CSF otorrhea, no CSF rhinorrhea, no hemotympanums. He does have a L-shaped laceration to the left occiput. This is approximately 2.2 cm. Bleeding is controlled) Neck: full range of motion, supple, tender lateral; No tender midline Cardiovascular: normal peripheral pulses, regular rate, rhythm Respiratory: chest non-tender, lungs clear, normal breath sounds, no respiratory distress, no accessory muscle use Gastrointestinal: normal bowel sounds, non tender, soft, no pulsatile mass Rectal: deferred Extremities: normal range of motion, non-tender, normal capillary refill Neurologic/Psychiatric: rabbler II-XII nml as tested, alert, oriented x 3 Skin: warm/dry, other (2.2 cm L-shaped laceration to the left occiput) (BRITT BASS MD) [place] Coma Score Best Eye Response: (4) Open Spontaneously Best Verbal Response: (5) Oriented Best Motor Response: (6) Obeys Commands [place] Total: 15 (BRITT BASS MD) Best Eye Response: (4) Open Spontaneously Best Verbal Response: (5) Oriented Best Motor Response: (6) Obeys Commands (VIJAYA JACK MD) Procedures/Interventions Wound Location: Scalp Wound Length (cm): 2.2 Wound's Depth, Shape: linear (L-shaped), contused tissue, sub Q Wound Explored: clean Irrigated w/ Saline (ccs): 150 Staple Repair: Stapler Skin Precise Progress After obtaining verbal consent from the patient the wound was cleaned with chlorhexidine scrub soap and sterile. Then using skin stapler a total of 5 simple interrupted marcela were placed to approximate the wound edges. Patient tolerated procedure well without any immediate complication. Ice pack was applied to help with pain and swelling. (BRITT BASS MD) Progress/Results/Core Measures Results/Orders Lab Results Laboratory Tests Test 05/14/23 06:15 Range/Units White Blood Count 6.6 4.3-11.0 10^3/uL Red Blood Count 3.62 L 4.30-5.52 10^6/uL Hemoglobin 12.8 L 13.3-17.7 g/dL Hematocrit 38 L 40-54 % Mean Corpuscular Volume 105 H 80-99 fL Mean Corpuscular Hemoglobin 35 H 25-34 pg Mean Corpuscular Hemoglobin Concent 34 32-36 g/dL Red Cell Distribution Width 14.8 H 10.0-14.5 % Platelet Count 183 130-400 10^3/uL Mean Platelet Volume 9.5 9.0-12.2 fL Immature Granulocyte % (Auto) 1 % Neutrophils (%) (Auto) 75 42-75 % Lymphocytes (%) (Auto) 12 12-44 % Monocytes (%) (Auto) 7 0-12 % Eosinophils (%) (Auto) 5 0-10 % Basophils (%) (Auto) 1 0-10 % Neutrophils # (Auto) 5.0 1.8-7.8 10^3/uL Lymphocytes # (Auto) 0.8 L 1.0-4.0 10^3/uL Monocytes # (Auto) 0.4 0.0-1.0 10^3/uL Eosinophils # (Auto) 0.3 0.0-0.3 10^3/uL Basophils # (Auto) 0.0 0.0-0.1 10^3/uL Immature Granulocyte # (Auto) 0.1 0.0-0.1 10^3/uL Prothrombin Time 14.0 12.2-14.7 SEC INR Comment 1.0 0.8-1.4 Activated Partial Thromboplast Time 37 H 24-35 SEC Sodium Level 141 135-145 MMOL/L Potassium Level 4.0 3.6-5.0 MMOL/L Chloride Level 104 98-107 MMOL/L Carbon Dioxide Level 29 21-32 MMOL/L Anion Gap 8 5-14 MMOL/L Blood Urea Nitrogen 21 H 7-18 MG/DL Creatinine 1.19 0.60-1.30 MG/DL Estimat Glomerular Filtration Rate 62 BUN/Creatinine Ratio 18 Glucose Level 131 H 70-105 MG/DL Calcium Level 9.1 8.5-10.1 MG/DL Corrected Calcium 9.3 8.5-10.1 MG/DL Magnesium Level 2.2 1.6-2.4 MG/DL Total Bilirubin 0.5 0.1-1.0 MG/DL Aspartate Amino Transf (AST/SGOT) 16 5-34 U/L Alanine Aminotransferase (ALT/SGPT) 13 0-55 U/L Alkaline Phosphatase 144 H 40-136 U/L Troponin I < 0.30 <0.30 NG/ML Pro-B-Type Natriuretic Peptide < 36.0 <450.0 PG/ML Total Protein 7.5 6.4-8.2 GM/DL Albumin 3.7 3.2-4.5 GM/DL (VIJAYA JACK MD) My Orders Orders - VIJAYA JACK MD Orthostatic Vital Signs (Adult (05/14/23 07:10) (VIJAYA JACK MD) Vital Signs/I&O 05/14/23 05/14/23 06:00 07:20 Temp 36.6 Pulse 93 93 94 95 Resp 18 B/P (MAP) 140/72 (94) 145/71 (95) 130/63 (85) 132/66 (88) Pulse Ox 98 O2 Delivery Room Air (VIJAYA JACK MD) Progress Progress Note #1: Progress Note Differential diagnosis includes cardiac arrhythmia, electrolyte imbalance, dehydration, renal failure, hepatic failure, myocardial infarction, skull fracture, intracranial hemorrhage, hypotension, vasovagal syncope. Obtain electrocardiogram to look for signs of ischemia and arrhythmia. Est ablish peripheral IV access and send labs for complete blood count, comprehensive metabolic profile, magnesium, troponin, proBNP, pro time INR, PTT, urinalysis. Administer Zofran 4 mg IV for nausea. Normal saline 250 mL bolus of IV fluid for hydration and dizziness. CT scan of the head and cervical spine to look for acute intracranial hemorrhage, mass, fracture. X-rays of the left shoulder to look for signs of bony damage. 1 view chest x-ray to look for signs of pneumonia, effusion, mass, pathology to contribute to his dizziness and syncope. Progress Note #2: Time: 06:51 Progress Note Complete blood count shows normal white blood cell count of 6.6. Has mildly low hemoglobin of 12.8. He does have an elevated MCV of 105 that could indicate a low B12 or folate level that might be contributing to his mild anemia. His potassium was normal at 4. His pro time and INR were not elevated. His PTT was slightly elevated to 37. He is in radiology for imaging. Will pass care to Dr. Jack at shift change for review of his other labs and imaging and determine disposition. (BRITT BASS MD) Progress Note : Progress Note Pt signed out to me by night physician for follow up of imaging. - CT head shows a small intracranial bleed, subarachnoid in nature, no midline shift. Pt also has a parietal-occipital hematoma. - Pt has a scalp laceration and 5 marcela were placed by night physician. - Pt appears to have a Grade 1 SAH, no symptoms at this time except a mild headache. Vitals stable. Pt is AOx3, and is able to converse without difficulty and can follow all commands. Will do frequent neuro exams. - Pt to be transferred to for admission and neurosurgery consult. Accepting physician is Dr Robison. - Pt will need to be flown to since we do not have an available ambulance to transport him at this time. (VIJAYA JACK MD) Initial ECG Impression Date: May 14, 2023 Initial ECG Impression Time: 06:22 Initial ECG Rate: 91 Initial ECG Rhythm: Normal Sinus Initial ECG Comparisson: Unchanged (07/30/2022) Comment My personal interpretation and review his electrocardiogram shows sinus rhythm with a heart rate of 91 bpm. He has moderate intraventricular conduction delay and nonspecific ST-T wave changes. He has no acute ST elevation. AK interval 196 ms. QT interval 367 ms with a QTc interval 416 ms. Overall appears similar to prior tracing from July 30, 2022. (BRITT BASS MD) Diagnostic Imaging Diagonstic Imaging: Xray Plain Films/CT/US/NM/MRI: other (Left shoulder) Diagonstic Imaging: Xray Plain Films/CT/US/NM/MRI: chest Diagonstic Imaging: CT Plain Films/CT/US/NM/MRI: c-spine, head (BRITT BASS MD) Diagonstic Imaging: Xray, CT Plain Films/CT/US/NM/MRI: chest, c-spine, head, other Comments [facility]. [place], [place] NAME: GM [facility] REC#: [id number] PT STATUS: REG ER : 1940 PHYSICIAN: BRITT BASS MD ADMIT DATE: 05/14/23/ER FS Draft Date of Exam:05/14/23 CT HEAD/CERVICAL SPINE WO PROCEDURE: CT head and CT cervical spine without contrast. TECHNIQUE: Multiple contiguous axial images were obtained through the brain and cervical spine without the use of intravenous contrast. Sagittal and coronal reformations through the cervical spine were then performed. Auto Exposure Controls were utilized during the CT exam to meet ALARA standards for radiation dose reduction. DATE: May 14, 2023. COMPARISON: None. INDICATION: 82-year-old male, syncope, fall. Head and neck pain. Dizziness. FINDINGS: There is hematoma in the left parieto-occipital scalp with overlying skin marcela. There is no identified skull fracture. There is mild proportional prominence of the ventricles and additional CSF spaces consistent with mild cerebral volume loss. There is no mass effect or midline shift. There is high attenuation in the left frontal lobe near the falx n the axial image 25 likely relating to a small area of acute intracranial hemorrhage. This may be subarachnoid in location. There is additional blood product more inferiorly located involving the medial aspects of both frontal lobes on axial image 20 and adjacent sequential images also most likely reflecting diffuse subarachnoid hemorrhage. The visualized portions of the paranasal sinuses, mastoid air cells and middle ears are well aerated. There is no identified facet joint subluxation or dislocation. There are facet degenerative changes of the cervical spine. There is no asymmetric widening of the cervical disc spaces. There is no prominent prevertebral soft tissue swelling. There is moderate disc height loss at C3-C4, C4-C5, and C5-C6. There are multilevel posterior disc osteophyte complexes. There is arthritis at the C1-C2 articulation. CT is limited for assessment of disc pathology as well as additional non-bony causes of pathology in the spinal canal. There is no identified acute abnormality of the cervical spine. IMPRESSION: 1. Small areas of acute blood product in the bilateral frontal lobes which is most likely subarachnoid in location. No pronounced mass effect or midline shift. 2. No hydrocephalus. 3. Mild cerebral volume loss. 4. Hematoma in the left parietal occipital scalp. 5. No identified acute posttraumatic abnormality of the cervical spine. 6. Multilevel degenerative changes of the cervical spine. Dictated on workstation # [id number] Dict: 05/14/23699 Trans: 05/14/2312 [facility] [id number] Interpreted by: ANU MYLES MD Electronically signed by: [facility] [place] [place] NAME: GM [facility] REC#: [id number] PT STATUS: REG ER : 1940 PHYSICIAN: BRITT BASS MD ADMIT DATE: 05/14/23/ER FS Draft Date of Exam:05/14/23 SHOULDER 3 VIEW LEFT EXAMINATION: Left shoulder radiographs, 3 views. COMPARISON: None. HISTORY: 82-year-old male, left shoulder pain. Fall. FINDINGS: The humeral head is normally positioned relative to the glenoid. The glenohumeral joint space is well-maintained. There is no identified acute fracture. The acromioclavicular joint is normally aligned. There is nonspecific opacification in the right hemithorax. IMPRESSION: 1. No identified acute bony abnormality of the right shoulder. 2. Nonspecific prominent opacification in the right hemithorax. Dictated on workstation # [id number] Dict: 05/14/23 0658 Trans: 05/14/23 0705 [facility] [id number] Interpreted by: ANU MYLES MD Electronically signed by: [facility] [place] [place] NAME: GM [facility] REC#: [id number] PT STATUS: REG ER : 1940 PHYSICIAN: BRITT BASS MD ADMIT DATE: 05/14/23/ER FS Draft Date of Exam:05/14/23 CHEST 1 VIEW AP/PA ONLY EXAMINATION: Chest radiograph, portable AP view. DATE: 05/14/2023 6:57 AM INDICATION: 82-year-old male, syncope, fall. COMPARISON: CT neck and chest December 07, 2018. FINDINGS: There is prominent consolidation in the right hemithorax with blunting of the right lateral costophrenic angle. There is mediastinal shift to the right likely relating to volume loss on the right. Some of the areas of opacification appear largely linear. There is a calcified right pleural plaque. Heart size and mediastinal contours are unchanged. There is no identified pneumothorax. The left lung is grossly clear. IMPRESSION: 1. Right hemithorax opacification which is most likely unchanged since December 07, 2018 CT chest and may reflect a combination of chronic lung changes and scarring, and right pleural effusion. There is mediastinal shift to the right relating to volume loss of the right lung. Dictated on workstation # [id number] Dict: 05/14/23 0704 Trans: 05/14/23719 [facility] [id number] Interpreted by: ANU MYLES MD Electronically signed by: (VIJAYA JACK MD) Transfer of Care Time: 07:00 Care transferred to: Dr. Jack (BRITT BASS MD) Departure Impression Primary Impression: Syncope Qualified Codes: R55 - Syncope and collapse Additional Impressions: Fall at home Qualified Codes: W19.XXXA - Unspecified fall, initial encounter; Y92.009 - Unspecified place in unspecified non-institutional (private) residence as the place of occurrence of the external cause Occipital scalp laceration Qualified Codes: S01.01XA - Laceration without foreign body of scalp, initial encounter Subarachnoid hemorrhage Disposition: 02 XFER S[facility]-TRM HOSP Condition: Stable Admissions Decision to Admit/Date: May 14, 2023 Time/Decision to Admit Time: 08:00 (VIJAYA JACK MD) Transfer Transfer Reason: Exceeds level of care Time Spoke to Accepting Phy: 08:04 Transfer Progress Notes Accepting physician is Dr. Robison Transfer Facility: Method of Transfer: Air (VIJAYA JACK MD) Departure-Patient Inst. Referrals: AVA HODGES MD (PCP) Primary Care Physician BRITT BASS MD May 14, 2023 06:26 VIJAYA JACK MD May 14, 2023 07:54
[2023-05-14 06:52] LABS: BUN/CREATININE RATIO 18; CALCIUM 9.1 MG/DL (8.5-10.1); CARBON DIOXIDE 29 MMOL/L (21-32); CHLORIDE 104 MMOL/L (98-107); CREATININE SERUM 1.19 MG/DL (0.60-1.30); GFR ESTIMATED 62; GLUCOSE 131 MG/DL (70-105); SODIUM 141 MMOL/L (135-145)
[2023-05-14 06:53] LABS: ALANINE AMINOTRANSFERASE 13 U/L (0-55); ALKALINE PHOSPHATASE 144 U/L (40-136); BILIRUBIN,TOTAL 0.5 MG/DL (0.1-1.0); MAGNESIUM 2.2 MG/DL (1.6-2.4)
[2023-05-14 06:54] LABS: ALBUMIN 3.7 GM/DL (3.2-4.5); TOTAL PROTEIN 7.5 GM/DL (6.4-8.2)
--- NOTE | 2023-05-14 07:06 | Diagnostic Imaging Report ---
EXAMINATION: Left shoulder radiographs, 3 views. COMPARISON: None. HISTORY: 82-year-old male, left shoulder pain. Fall. FINDINGS: The humeral head is normally positioned relative to the glenoid. The glenohumeral joint space is well-maintained. There is no identified acute fracture. The acromioclavicular joint is normally aligned. There is nonspecific opacification in the right hemithorax. IMPRESSION: 1. No identified acute bony abnormality of the right shoulder. 2. Nonspecific prominent opacification in the right hemithorax. Dictated by: Dictated on workstation # [id number]
--- NOTE | 2023-05-14 07:13 | Diagnostic Imaging Report ---
PROCEDURE: CT head and CT cervical spine without contrast. TECHNIQUE: Multiple contiguous axial images were obtained through the brain and cervical spine without the use of intravenous contrast. Sagittal and coronal reformations through the cervical spine were then performed. Auto Exposure Controls were utilized during the CT exam to meet ALARA standards for radiation dose reduction. DATE: May 14, 2023. COMPARISON: None. INDICATION: 82-year-old male, syncope, fall. Head and neck pain. Dizziness. FINDINGS: There is hematoma in the left parieto-occipital scalp with overlying skin marcela. There is no identified skull fracture. There is mild proportional prominence of the ventricles and additional CSF spaces consistent with mild cerebral volume loss. There is no mass effect or midline shift. There is high attenuation in the left frontal lobe near the falx n the axial image 25 likely relating to a small area of acute intracranial hemorrhage. This may be subarachnoid in location. There is additional blood product more inferiorly located involving the medial aspects of both frontal lobes on axial image 20 and adjacent sequential images also most likely reflecting diffuse subarachnoid hemorrhage. The visualized portions of the paranasal sinuses, mastoid air cells and middle ears are well aerated. There is no identified facet joint subluxation or dislocation. There are facet degenerative changes of the cervical spine. There is no asymmetric widening of the cervical disc spaces. There is no prominent prevertebral soft tissue swelling. There is moderate disc height loss at C3-C4, C4-C5, and C5-C6. There are multilevel posterior disc osteophyte complexes. There is arthritis at the C1-C2 articulation. CT is limited for assessment of disc pathology as well as additional non-bony causes of pathology in the spinal canal. There is no identified acute abnormality of the cervical spine. IMPRESSION: 1. Small areas of acute blood product in the bilateral frontal lobes which is most likely subarachnoid in location. No pronounced mass effect or midline shift. 2. No hydrocephalus. 3. Mild cerebral volume loss. 4. Hematoma in the left parietal occipital scalp. 5. No identified acute posttraumatic abnormality of the cervical spine. 6. Multilevel degenerative changes of the cervical spine. Dictated by: Dictated on workstation # [id number]
[2023-05-14 07:20] VITALS: BP_SYST 130; BP_SYST 132; BP_SYST 145; BP_DIAS 63; BP_DIAS 66; BP_DIAS 71
--- NOTE | 2023-05-14 07:21 | Diagnostic Imaging Report ---
EXAMINATION: Chest radiograph, portable AP view. DATE: 05/14/2023 6:57 AM INDICATION: 82-year-old male, syncope, fall. COMPARISON: CT neck and chest December 07, 2018. FINDINGS: There is prominent consolidation in the right hemithorax with blunting of the right lateral costophrenic angle. There is mediastinal shift to the right likely relating to volume loss on the right. Some of the areas of opacification appear largely linear. There is a calcified right pleural plaque. Heart size and mediastinal contours are unchanged. There is no identified pneumothorax. The left lung is grossly clear. IMPRESSION: 1. Right hemithorax opacification which is most likely unchanged since December 07, 2018 CT chest and may reflect a combination of chronic lung changes and scarring, and right pleural effusion. There is mediastinal shift to the right relating to volume loss of the right lung. Dictated by: Dictated on workstation # [id number]
[2023-05-14 09:10] VITALS: BP 142/73
== END 2023-05-14 09:10 | disposition short-term general hospital (02) ==
LOC: EDUNIT# 05:58 → ER FS 05:59
DX: S06.6X1A Traumatic subarachnoid hemorrhage with loss of consciousness of 30 minutes or less, initial encounter (principal); S01.01XA Laceration without foreign body of scalp, initial encounter; R55 Syncope and collapse; D64.9 Anemia, unspecified; M25.512 Pain in left shoulder; W18.30XA Fall on same level, unspecified, initial encounter; W22.8XXA Striking against or struck by other objects, initial encounter; Y92.009 Unspecified place in unspecified non-institutional (private) residence as the place of occurrence of the external cause
CPT/HCPCS: 12001; 36415; 70450; 71045; 72125; 73030; 80053; 83735; 83880; 84484; 85025; 85610; 85730; 93005; 93041; 96374

== ENCOUNTER 2023-05-27 06:19 | Emergency (ER) | payer MEDICARE, OTHER ==
[~2023-05-27] VITALS: Ht 175.2 cm; Wt 83.0 kg
--- NOTE | 2023-05-27 06:34 | ED Head Injury ---
History of Present Illness Date Seen by Provider: May 27, 2023 Time Seen by Provider: 06:20 Initial Comments 83-year-old male with PMH of CHF/COPD/HTN/recurrent falls with recent fall resulting in a small subarachnoid hemorrhage and was transferred to and discharged on 05/24/2023 and was diagnosed with BPPV and sent home on meclizine, is here by EMS with another fall earlier this morning when he was taking his morning medications. Patient reports feeling dizzy which resulted in a fall causing a head laceration. Patient is alert and oriented x3 able to answer all questions and follow all commands. Denies headache, neck pain, blurry vision, hearing issues, nausea and vomiting. (VIJAYA HARRELL MD) Allergies and Home Medications Allergies Coded Allergies: adhesive tape (Verified Allergy, Unknown, rash, 02/24/19) Patient Home Medication List Home Medication List Reviewed: Yes (VIJAYA HARRELL MD) Cyclobenzaprine HCl (Cyclobenzaprine HCl) 10 Mg Tablet, 10 MG PO TID Prescribed by: LAILA GODFREY on 09/13/21 1242 Pantoprazole Sodium (Protonix) 40 Mg , 40 MG PO DAILY Prescribed by: TUNDE HARRY on 02/24/19 2203 Review of Systems Review of Systems Constitutional: see HPI, dizziness Skin: other (scalp laceration) (VIJAYA HARRELL MD) Past Samaukg-Dgbpxo-Pirvje Hx Immunizations Up To Date First/Initial COVID19 Vaccinat: Yes Second COVID19 Vaccination Abiodun: yes Third COVID19 Vaccination Date: Yes (VIJAYA HARRELL MD) Seasonal Allergies Seasonal Allergies: No (VIJAYA HARRELL MD) Past Medical History Surgery/Hospitalization HX: High cholesterol; hypothyroidism; BPH; Depression; Kidney stones; Appendectomy. 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 oz. 88.381304hh; 27.00 BMI Method:Stated General Appearance: WD/WN, no apparent distress HEENT: PERRL/EOMI, normal ENT inspection, other (Parietal occipital scalp laceration measuring 1.75 cm with minimal bleeding.) Neck: non-tender, full range of motion, supple, normal inspection Cardiovascular: regular rate, rhythm Respiratory: chest non-tender, lungs clear Gastrointestinal: non tender, soft Extremities: normal range of motion, non-tender, normal inspection Psychiatric: alert, oriented x 3 Crainal Nerves: normal hearing, normal speech, PERRL Coordination/Gait: normal finger to nose, normal gait Motor/Sensory: no motor deficit, no sensory deficit Skin: normal color (VIJAYA HARRELL MD) Rawlings Coma Score Best Eye Response: (4) Open Spontaneously Best Verbal Response: (5) Oriented Best Motor Response: (6) Obeys Commands Rawlings Total: 15 (VIJAYA HARRELL MD) Progress/Results/Core Measures Results/Orders Vital Signs/I&O 05/27/23 07:18 Temp 36.8 Pulse 96 Resp 16 B/P (MAP) 161/82 Pulse Ox 99 O2 Delivery Room Air (ANGÉLICA GARCIA DO) Progress Progress Note : Progress Note 1. FALL with HEAD LACERATION: - CT HEAD: - Wound irrigated, minimal bleeding, Scalp lac: 3 marcela placed -Patient is alert and oriented x3, able to answer all questions and follow all commands. - Will sign out pt to day physician for follow up of CT head. (VIJAYA HARRELL MD) Departure Communication (Admissions) independently reviewed CT imaging shows interval resolution of previously identified subarachnoid hemorrhage and no new acute intracranial abnormalities. Patient is neurologically intact with GCS of 15. Discharged home in stable condition. (ANGÉLICA GARCIA DO) Impression Primary Impression: Fall Qualified Codes: W19.XXXA - Unspecified fall, initial encounter Additional Impression: Scalp laceration Qualified Codes: S01.01XA - Laceration without foreign body of scalp, initial encounter Disposition: HOME, SELF-CARE Condition: Stable Departure-Patient Inst. Referrals: AVA HODGES MD (PCP) Primary Care Physician Patient Instructions: Minor Head Injury (DC), Laceration Repair With [place] [facility] Add. Discharge Instructions: Have your marcela removed in 7 to [address] scan shows resolution of the previously identified brain bleed and no new brain bleeds or other issues. Use ibuprofen and Tylenol for pain. Return to the emergency department for any severe concerns. VIJAYA HARRELL MD May 27, 2023 06:34 ANGÉLICA GARCIA DO May 27, 2023 07:19
--- NOTE | 2023-05-27 07:15 | Diagnostic Imaging Report ---
EXAMINATION: CT head without contrast. TECHNIQUE: Multiple contiguous axial images were obtained through the brain without the use of intravenous contrast. All CT scans use one or more of the following dose optimizing techniques: automated exposure control, MA and/or KvP adjustment based on patient size and exam type or iterative reconstruction. HISTORY: Fall. Dizziness. Recent hospitalization for subarachnoid hemorrhage. COMPARISON: 05/14/2023. FINDINGS: No large acute territorial ischemia, mass, or hemorrhage. No midline shift or mass effect. The previously visualized subarachnoid hemorrhage within the frontal region has resolved. No new areas of subarachnoid hemorrhage. Decreased attenuation is seen in the periventricular and subcortical white matter. The ventricles and cortical sulci are prominent. The basilar cisterns are patent and unremarkable. The orbits are normal. Mucosal thickening is seen in the paranasal sinuses. Mastoid air cells are clear. Decreased scalp contusion is seen overlying the left parietal region. Skin marcela are present. No osseus lesions or fractures are seen. IMPRESSION: 1. Interval resolution of the previously noted subarachnoid hemorrhage within the frontal regions. No new areas of subarachnoid hemorrhage. 2. No large acute territorial ischemia. Dictated by: Dictated on workstation # [id number]
[2023-05-27 07:18] VITALS: BP 161/82
== END 2023-05-27 07:20 | disposition home or self-care (01) ==
LOC: EDUNIT# 06:19 → ER FS 06:25
DX: S01.01XA Laceration without foreign body of scalp, initial encounter (principal); W18.30XA Fall on same level, unspecified, initial encounter
CPT/HCPCS: 12001; 70450